=== PATIENT | male | born 1945 ===

== ENCOUNTER 2019-04-07 09:49 | Day surgery (SDC) | payer MEDICARE, OTHER, SELFPAY ==
--- NOTE | 2019-04-07 | PATH_ITS ---
[facility] Accession Number: [id number] . 01 Material submitted: . PART A: colon - ASCENDING COLON POLYP PART B: colon - TRANSVERSE COLON POLYP PART C: sigmoid colon - SIGMOID COLON POLYP . 01 Clinical history: . B: POLYP X2 . 02 Diagnosis: A. Ascending Colon, Polyp, Biopsy: Tubular adenoma. . B. Transverse Colon, Polyp, Biopsy: Tubular adenoma. . C. Sigmoid Colon, Polyp, Biopsy: Scant superficial, detached glandular epithelial cells negative for dysplasia. Vegetable material is also present. JRL/04/09/2019 . 02 Electronically signed: . Jennifer Lynch MD, Pathologist NPI- [id number] . 01 Gross description: . Part A: ASCENDING COLON POLYP: Received in formalin is 1 fragment(s) of singh, soft tissue measuring 0.6 x 0.3 x 0.2 cm submitted entirely in 1 cassette(s) Part B: TRANSVERSE COLON POLYP: Received in formalin are multiple fragment(s) of singh, soft tissue measuring 0.7 x 0.5 x 0.2 cm in aggregate submitted entirely in 1 cassette(s) Part C: SIGMOID COLON POLYP: Received in formalin are multiple fragment(s) of singh, soft tissue measuring 0.4 x 0.3 x 0.2 cm in aggregate submitted entirely in 1 cassette(s) /CKI /CKI . 02 Microscopic: . C. Additional levels were examined. . 02 Pathologist provided ICD-10: D12.2, D12.3 . 02 CPT . 895999, 618186, 584809 Performed at: 01 [facility] [address] [place] [address] [address], [place], [place] [id number] MD Hari Cárdenas MD Phone: [phone] Performed at: 02 [facility] [place] [address] [place] [id number] MD Jennifer Lynch MD Phone: [phone]
[2019-04-07 10:31] VITALS: BP 149/83; PULSE 64; RESP 16; TEMP 36; O2SAT 96; BMI 37.5
[2019-04-07 10:46] VITALS: BP 149/83; PULSE 64; RESP 16; TEMP 36; O2SAT 96; BMI 37.5
[2019-04-07] MEDS: SODIUM CHLORIDE 0.9% 1,000 ML 200 ML IV (10:48)
--- NOTE | 2019-04-07 11:40 | PM.HP.1 ---
History of Present Illness Chief complaint: [id number] SCREENING COLONOSCOPY Patient History Medical History Diabetes (Acute) GERD (gastroesophageal reflux disease) (Acute) History of ulcer disease (Acute) Hypertension (Acute) Hypothyroid (Acute) Seasonal allergies (Acute) Sleep apnea with use of continuous positive airway pressure (CPAP) (Acute) Surgical History H/O knee surgery (Acute) History of appendectomy (Acute) History of colonoscopy (Acute) History of tonsillectomy (Acute) History of total knee arthroplasty (Acute) Social History household members: spouse Family & Social History Social History: household members spouse Meds Home Medications Medication Instructions Recorded Confirmed Type Diuretic PO DAILY 04/07/19 History albuterol sulfate 2 puff INHALATION Q2H PRN 04/07/19 04/07/19 History aspirin 81 mg PO DAILY 04/07/19 04/07/19 History diclofenac sodium 2 g TOPICAL BID 04/07/19 04/07/19 History ferrous sulfate 324 mg PO DAILY 04/07/19 04/07/19 History fluticasone propionate 1 spray INTRANASAL BID 04/07/19 04/07/19 History gemfibrozil 600 mg PO BID 04/07/19 04/07/19 History glipizide 5 mg PO BID 04/07/19 04/07/19 History insulin glargine [Lantus U-100 24 unit SUBCUT DAILY 04/07/19 04/07/19 History Insulin] levothyroxine 125 mcg PO DAILY 04/07/19 04/07/19 History loratadine 10 mg PO DAILY 04/07/19 04/07/19 History losartan 100 mg PO DAILY 04/07/19 04/07/19 History metformin 1,000 mg PO BID 04/07/19 04/07/19 History metoprolol succinate 25 mg PO DAILY 04/07/19 04/07/19 History omeprazole 20 mg PO DAILY 04/07/19 04/07/19 History terazosin 10 mg PO BEDTIME 04/07/19 04/07/19 History triamcinolone acetonide 1 applic TOPICAL DAILY 04/07/19 04/07/19 History Allergies Allergy/AdvReac Type Severity Reaction Status Date / Time Xitpiiu-Dza-Kck Reductase AdvReac Intermediate Muscle Pain Verified 04/07/19 10:24 Inhibitor Review of Systems Review of Systems All systems reviewed & are unremarkable except as noted in HPI and below Exam Vital Signs (past 8 hours): - 04/07/19 10:31 04/07/19 10:46 Temperature 96.8 F L 96.8 F L Pulse Rate 64 64 Respiratory Rate 16 16 Blood Pressure 149/83 H 149/83 H Pulse Oximetry 96 96 Oxygen Delivery Method Room Air Narrative Exam Narrative: Awake alert oriented x3, pupils equal round reactive to light, lungs clear, heart regular rate rhythm, abdomen soft nontender nondistended, Assessment & Plan Assessment & Plan narrative: Colon cancer screening, colonoscopy
[2019-04-07] MEDS: fentaNYL 250 MCG/5 ML INJ IV (11:57)
[2019-04-07] MEDS: MIDAZOLAM 5 MG/5 ML VIAL IV (11:58)
--- NOTE | 2019-04-07 12:13 | PM.OP.ENDO ---
Operative Date/Time/Diagnoses Date of procedure: 04/07/19 Procedure & Clinicians Study performed: Colonoscopy with cold biopsy and snare polypectomy Moderate conscious sedation was administered by the endoscopy nurse and supervised by the endoscopist. The following parameters were monitored: Oxygen saturation, heart rate, blood pressure, and response to care. Sedation: 4 mg midazolam, 125 micro g fentanyl Indications: Colon cancer screening. Last colonoscopy was greater than 10 years ago. Procedure Notes Procedure in detail: Prior to the procedure, history and physical was performed, and patient medications and allergies were reviewed. Preprocedure nursing history and assessment was reviewed. Patient identification and proposed procedure were verified by the physician and nurse in the procedure room. The physical status of the patient was reassessed after the procedure. After informed consent was obtained including risks, benefits, and alternatives, the scope was passed under direct vision. Throughout the procedure, the patient's blood pressure, pulse, and oxygen saturations were monitored continuously. The colonoscope was introduced through the anus and advanced to the cecum as identified by the appendiceal orifice and ileocecal valve. The patient tolerated the procedure well. Bowel prep was deemed adequate to detect polyps greater than 5 mm. Perianal and digital rectal examinations notable for hemorrhoids. Grade 2 internal hemorrhoids noted during retroflexion. Multiple medium mouth sigmoid colon diverticula noted 3 mm ascending colon sessile polyp removed with a Jumbo biopsy forceps and retrieved Three sessile polyps ranging in size from 4 to 6 mm removed from the transverse and sigmoid colon with a cold snare and retrieved Impression: Four polyps ranging in size from 3-6 mm removed from the ascending, transverse, and sigmoid colon Sigmoid colon diverticulosis Internal hemorrhoids Complications: other (EBL minimal. No complications) Plan for aftercare: Follow-up pathology results Repeat colonoscopy at a date to be determined based on pathology results High-fiber diet Resume home medications Discharge home with escort
[2019-04-07 12:15] VITALS: BP 145/78; PULSE 56; RESP 15; TEMP 36.4; O2SAT 93
[2019-04-07 12:20] VITALS: BP 125/77; PULSE 57; RESP 15; TEMP 36.1; O2SAT 95
[2019-04-07 12:24] VITALS: BP 116/61; PULSE 57; RESP 16; TEMP 36.2; O2SAT 96
[2019-04-07 12:26] VITALS: BP 105/62; PULSE 57; RESP 18; TEMP 36.2; O2SAT 96
== END 2019-04-07 12:40 | disposition home or self-care (01) ==
PROVIDERS: Family Provider Internal Medicine; PCP Internal Medicine; Visit Provider Internal Medicine
PROC: 0DJD8ZZ Inspection of Lower Intestinal Tract, Via Natural or Artificial Opening Endoscopic (ICD-10-PCS; CPT 45378; principal; 2019-04-07 11:30)
DX: Z12.11 Encounter for screening for malignant neoplasm of colon (principal); K57.30 Diverticulosis of large intestine without perforation or abscess without bleeding; K64.1 Second degree hemorrhoids; E11.9 Type 2 diabetes mellitus without complications; I10 Essential (primary) hypertension; E03.9 Hypothyroidism, unspecified; G47.33 Obstructive sleep apnea (adult) (pediatric); D12.2 Benign neoplasm of ascending colon; D12.3 Benign neoplasm of transverse colon
CPT/HCPCS: 45385; 45380; 88305; J2250; J3010

== ENCOUNTER → 2022-05-25 10:12 | Outpatient (CLI) | payer MEDICARE, OTHER, SELFPAY ==
[2022-05-25 11:09] LABS: Influenza A - CEPHEID Flu A NEGATIVE (NEGATIVE); Influenza B - CEPHEID Flu B NEGATIVE (NEGATIVE)
== END ==
PROVIDERS: Family Provider Internal Medicine; PCP Internal Medicine; Visit Provider Physician Assistant
DX: J06.9 Acute upper respiratory infection, unspecified (principal)
CPT/HCPCS: 87502

== ENCOUNTER → 2022-05-25 10:29 | Outpatient (CLI) | payer MEDICARE, OTHER, SELFPAY ==
--- NOTE | 2022-05-25 10:34 | DI.RAD.S_ITS ---
PROCEDURE: XR CHEST 2V INDICATIONS: Covid +, COPD, SOB, wheezing TECHNIQUE: 2 views of the chest were acquired. COMPARISON: None. FINDINGS: Surgical changes and devices: None. Lungs and pleura: Lungs are clear. No pleural effusions or pneumothorax. Mediastinum: Mediastinal contours are normal. Heart size is normal. Bones and chest wall: No suspicious bony abnormalities. Soft tissues appear unremarkable. IMPRESSION: No acute cardiopulmonary process demonstrated radiographically. Dictated by: Rashaad Chapin M.D. on 05/25/2022 at 10:48 Approved by: Rashaad Chapin M.D. on 05/25/2022 at 10:49
== END ==
PROVIDERS: Family Provider Internal Medicine; PCP Internal Medicine; Referring Provider Physician Assistant; Visit Provider Physician Assistant
DX: J06.9 Acute upper respiratory infection, unspecified (principal); R06.02 Shortness of breath
CPT/HCPCS: 71046; 87502

== ENCOUNTER 2025-11-13 10:14 | Inpatient (IN) | payer MEDICARE, OTHER, SELFPAY ==
[2025-11-13] VITALS (49 sets, daily range): BP systolic 107–191; BP diastolic 54–97; PULSE 41–92; RESP 15–30; TEMP 36.6–37; O2SAT 90–100; BMI 37.5
--- NOTE | 2025-11-13 10:32 | EKG_ITS ---
[facility] [address] [place] [address] Test Date: 2025-11-13 Pat Name: Gael Woods Department: [facility] Room: Gender: Male Space Physicist: VIJI : 1945 Requested By: Order Number: [id number] Reading MD: Sundar Maier MD Measurements Intervals [place] Rate: 62 P: [place]: QRS: -54 QRSD: 128 T: 47 QT: 430 QTc: 436 Interpretive Statements Atrial fibrillation with a competing junctional pacemaker with premature ventricular or aberrantly conducted complexes Left axis deviation Right bundle branch block NO PRIOR TRACING Electronically Signed On 11-13-2025 12:04:32 PST by Sundar Maier MD
--- NOTE | 2025-11-13 10:32 | DI.RAD.S_ITS ---
PROCEDURE: XR CHEST 1V INDICATIONS: sough fever TECHNIQUE: One view of the chest was acquired. COMPARISON: [facility], CR, XR CHEST 2V, 05/25/2022, 10:23. FINDINGS: Heart is enlarged. Pulmonary vasculature unremarkable. No pneumothorax or pleural effusion. Probable large hiatal hernia. IMPRESSION: No acute abnormality. Suspect large hiatal hernia. Dictated by: Stanley Tan M.D. on 11/13/2025 at 11:30 Approved by: Stanley Tan M.D. on 11/13/2025 at 11:31
--- NOTE | 2025-11-13 10:37 | ED.WEAKNESS ---
HPI - Weakness General Chief complaint: Weakness Stated complaint: Pneumonia/Weak,tired Time Seen by Provider: 11/13/25 10:24 Source: patient and family Mode of arrival: Family Vehicle History of Present Illness HPI Narrative: Patient is a 79-year-old male history of insulin-dependent diabetes, hypertension hyperlipidemia recently was admitted to [facility] for an episode of atrial fibrillation but per patient thought it was from medication he is not on anticoagulation, presenting today with increasing weakness cough and shortness of breath. Reports he was diagnosed by an urgent care for pneumonia. He was placed on Augmentin and doxycycline today is the last day of antibiotics but he has had no significant improvement. He has been weak and tired. He had episodes of mucousy coughing spells where he is unable to stop. Appetite has been decreased. Related Data Home Medications ?Medication ?Instructions ?Recorded ?Confirmed Diuretic PO DAILY 04/07/19 05/25/22 albuterol sulfate 90 mcg/actuation 2 puff inhalation Q2H PRN copd 04/07/19 05/25/22 aerosol inhaler aspirin 81 mg tablet,delayed 81 mg PO DAILY 04/07/19 05/25/22 release diclofenac sodium 1 % topical gel 2 g topical BID 04/07/19 05/25/22 ferrous sulfate 324 mg (65 mg 324 mg PO DAILY 04/07/19 05/25/22 iron) tablet,delayed release fluticasone propionate 50 1 spray intranasal BID 04/07/19 05/25/22 mcg/actuation nasal spray,suspension gemfibrozil 600 mg tablet 600 mg PO BID 04/07/19 05/25/22 glipizide 5 mg tablet 5 mg PO BID 04/07/19 05/25/22 insulin glargine 100 unit/mL 24 unit SUBCUT DAILY 04/07/19 05/25/22 subcutaneous solution (Lantus U-100 Insulin) levothyroxine 125 mcg tablet 125 mcg PO DAILY 04/07/19 05/25/22 loratadine 10 mg tablet 10 mg PO DAILY 04/07/19 05/25/22 losartan 100 mg tablet 100 mg PO DAILY 04/07/19 05/25/22 metformin 1,000 mg tablet 1,000 mg PO BID 04/07/19 05/25/22 metoprolol succinate 25 mg 25 mg PO DAILY 05/08/19 06/25/22 tablet,extended release 24 hr omeprazole 20 mg capsule,delayed 20 mg PO DAILY 04/07/19 05/25/22 release terazosin 10 mg capsule 10 mg PO BEDTIME 04/07/19 05/25/22 triamcinolone acetonide 0.1 % 1 applic topical DAILY 04/07/19 05/25/22 topical ointment Previous Rx's ?Medication ?Instructions ?Recorded codeine 10 mg-guaifenesin 100 mg/5 5 ml PO Q6H PRN cough #100 mL 11/13/25 mL oral liquid (Guaifenesin AC) prednisone 10 mg tablet 10 mg PO DAILY #30 tabs 11/13/25 Allergies Allergy/AdvReac Type Severity Reaction Status Date / Time [id number] Reductase AdvReac Intermediate Muscle Pain Verified 11/13/25 10:28 Inhibitor (Mkwyrex-Cwv-Jtl Reductase Inhibitor) Patient History Medical History (Updated 11/13/25 @ 19:03 by Aretha Gongora DO) History of ulcer disease Seasonal allergies Hypertension GERD (gastroesophageal reflux disease) Hypothyroid Sleep apnea with use of continuous positive airway pressure (CPAP) Diabetes Surgical History H/O knee surgery History of total knee arthroplasty History of tonsillectomy History of appendectomy History of colonoscopy Social History household members: spouse Smoking Status: Former smoker Smoking Status: Former smoker tobacco type: cigarettes Exam Initial Vital Signs Initial Vital Signs: Vital Signs Temperature 98.6 F 11/13/25 10:28 Pulse Rate 52 L 11/13/25 10:28 Respiratory Rate 22 11/13/25 10:28 Blood Pressure 163/70 H 11/13/25 10:28 Pulse Oximetry 95 11/13/25 10:28 Oxygen Delivery Method Room Air 11/13/25 10:28 GENERAL: Alert week 79-year-old and in no acute distress. HEENT: Head atraumatic,EOMI, pupils reactive, face symmetric, moist mucous membranes CARDIOVASCULAR: Regular rate and rhythm without murmurs, rubs or gallops. RESPIRATORY: Decreased breath sounds slight wheezing definite coughing with deep breath ABDOMEN: Soft, nontender. Normoactive bowel sounds all 4 quadrants. No guarding or rebound. EXTREMITIES: Normal range of motion, no clubbing or edema. Neurovascularly intact NEUROLOGICAL: Alert and oriented x4.Normal gait and speech. Cranial nerves II through XII grossly intact. SKIN: Warm, dry, no laceration, no petechiae, no rashes or lesions. Course Orders Ordered: ED Orders 11/13/25 10:32 XR chest 1V Stat EKG-12 Lead Stat 11/13/25 10:38 Covid-19 + FLU A/B + RSV - PCR Stat 11/13/25 10:45 Complete Blood Count AUTO DIFF Stat Comprehensive Metabolic Panel Stat Lactate (Lactic Acid) Stat NT-proBNP (BNP-Adult 18+) Stat Procalcitonin Stat Troponin & CK Cardiac Panel Stat 11/13/25 11:00 Blood Culture Stat 11/13/25 13:40 Urinalysis and Microscopic Stat 11/13/25 15:25 Lactate (Lactic Acid) Stat Discontinued Medications Albuterol/Ipratropium (Albuterol/Ipratropium 3 Ml Ampul) 3 ml INH NOW ONE Stop: 11/13/25 10:34 Last Admin: 11/13/25 10:52 Dose: 3 ml Documented By: BRYON Albuterol/Ipratropium (Albuterol/Ipratropium 3 Ml Ampul) 3 ml INH NOW ONE Stop: 11/13/25 16:28 Last Admin: 11/13/25 16:29 Dose: 3 ml Documented By: REMBERTO Sodium Chloride (Normal Saline 0.9%) 1,000 mls @ 1,000 mls/hr IV BOLUS ONE Stop: 11/13/25 12:40 Last Infusion: 11/13/25 13:24 Dose: Infused Documented By: Admin: 11/13/25 12:16 Dose: 1,000 mls/hr Documented By: JOSEPH Piperacillin Sod/Tazobactam (Sod 4.5 gm/ Sodium Chloride) 100 mls @ 200 mls/hr IV NOW ONE Stop: 11/13/25 11:42 Last Infusion: 11/13/25 13:24 Dose: Infused Documented By: Admin: 11/13/25 12:16 Dose: 200 mls/hr Documented By: JOSEPH Sodium Chloride (Normal Saline 0.9%) 1,000 mls @ 1,000 mls/hr IV BOLUS ONE Stop: 11/13/25 16:54 Last Infusion: 11/13/25 17:45 Dose: Infused Documented By: Admin: 11/13/25 16:38 Dose: 1,000 mls/hr Documented By: JOSEPH Methylprednisolone (Methylprednisolone Succ 125 Mg/2 Ml Vial) 125 mg IV NOW ONE Stop: 11/13/25 10:34 Last Admin: 11/13/25 11:18 Dose: 125 mg Documented By: JENNA Vital Signs Vital signs: Vital Signs - 8 hr 11/13/25 11:23 11/13/25 11:23 11/13/25 11:30 Pulse Rate 50 L Respiratory Rate 23 Blood Pressure 143/76 H 133/63 Pulse Oximetry 95 Oxygen Delivery Method 11/13/25 11:30 11/13/25 11:45 11/13/25 11:45 Pulse Rate 48 L 50 L Respiratory Rate 16 21 Blood Pressure 143/70 H Pulse Oximetry 94 97 Oxygen Delivery Method 11/13/25 12:00 11/13/25 12:00 11/13/25 12:15 Pulse Rate 47 L Respiratory Rate 15 Blood Pressure 123/57 L 128/61 Pulse Oximetry 94 Oxygen Delivery Method 11/13/25 12:15 11/13/25 12:30 11/13/25 12:30 Pulse Rate 55 L 49 L Respiratory Rate Blood Pressure 136/64 Pulse Oximetry 97 95 Oxygen Delivery Method 11/13/25 12:45 11/13/25 12:45 11/13/25 13:00 Pulse Rate 43 L 49 L Respiratory Rate 23 24 Blood Pressure 154/63 H Pulse Oximetry 94 94 Oxygen Delivery Method 11/13/25 13:00 11/13/25 13:15 11/13/25 13:15 Pulse Rate 44 L Respiratory Rate 26 H Blood Pressure 142/66 H 156/70 H Pulse Oximetry 94 Oxygen Delivery Method 11/13/25 13:28 11/13/25 13:31 11/13/25 13:45 Pulse Rate 44 L 52 L 61 Respiratory Rate 16 18 Blood Pressure 156/70 H 151/64 H 107/54 L Pulse Oximetry 91 95 98 Oxygen Delivery Method Room Air 11/13/25 14:01 11/13/25 14:15 11/13/25 14:30 Pulse Rate 41 L 52 L 54 L Respiratory Rate 24 19 16 Blood Pressure 142/63 H 142/60 H 140/62 Pulse Oximetry 92 98 96 Oxygen Delivery Method 11/13/25 14:45 11/13/25 16:15 11/13/25 16:16 Pulse Rate 62 45 L 49 L Respiratory Rate 23 Blood Pressure 149/65 H Pulse Oximetry 97 96 95 Oxygen Delivery Method Room Air 11/13/25 16:18 11/13/25 16:25 11/13/25 16:25 Pulse Rate 45 L Respiratory Rate 25 H Blood Pressure 170/77 H 172/78 H Pulse Oximetry 95 Oxygen Delivery Method 11/13/25 16:29 11/13/25 16:30 11/13/25 16:31 Pulse Rate 53 L 44 L 44 L Respiratory Rate 16 26 H 26 H Blood Pressure Pulse Oximetry 99 94 93 Oxygen Delivery Method Room Air Room Air 11/13/25 16:31 11/13/25 16:45 11/13/25 16:45 Pulse Rate 54 L Respiratory Rate 28 H Blood Pressure 168/91 H 168/68 H Pulse Oximetry 92 Oxygen Delivery Method 11/13/25 17:00 11/13/25 17:00 11/13/25 17:15 Pulse Rate 62 Respiratory Rate 26 H Blood Pressure 181/78 H 172/75 H Pulse Oximetry 92 Oxygen Delivery Method Room Air 11/13/25 17:15 11/13/25 17:30 11/13/25 17:31 Pulse Rate 83 92 H Respiratory Rate 27 H 30 H Blood Pressure 167/97 H Pulse Oximetry 90 L 95 Oxygen Delivery Method 11/13/25 17:31 11/13/25 17:45 11/13/25 17:45 Pulse Rate 88 90 Respiratory Rate 29 H Blood Pressure 167/84 H Pulse Oximetry 95 93 Oxygen Delivery Method Room Air 11/13/25 18:00 11/13/25 18:01 11/13/25 18:01 Pulse Rate 89 85 Respiratory Rate 26 H 27 H Blood Pressure 163/71 H Pulse Oximetry 93 94 Oxygen Delivery Method 11/13/25 18:15 11/13/25 18:15 11/13/25 18:30 Pulse Rate 82 Respiratory Rate 25 H Blood Pressure 159/70 H 149/77 H Pulse Oximetry 93 Oxygen Delivery Method 11/13/25 18:30 Pulse Rate 81 Respiratory Rate 25 H Blood Pressure Pulse Oximetry 94 Oxygen Delivery Method Room Air MDM - Weakness Lab Data 11/13/25 10:45 11/13/25 10:45 Labs: Lab Results 11/13/25 11/13/25 11/13/25 Range/Units 10:38 10:45 12:40 WBC 9.8 (4.5-11.0) X10^3/uL RBC 4.08 L (4.5-5.9) X10^6/uL Hgb 12.0 L (13.5-17.5) g/dL Hct 36.0 L (41-53) % MCV 88.3 (80-100) fL MCH 29.4 (26-34) PG MCHC 33.3 (30-36) % RDW 13.4 (11.6-14.8) % Plt Count 444 H (150-400) X10^3/uL Neut % (Auto) 74.0 (50-75) % Lymph % (Auto) 13.5 L (25-40) % [place] % (Auto) 9.4 (3-14) % Eos % (Auto) 2.0 (2-4) % Baso % (Auto) 1.1 (0-2) % Neut # (Auto) 7200 H (7652-3690) /uL Lymph # (Auto) 1300 (8467-2937) /uL [place] # (Auto) 900 (0-900) /uL Eos # (Auto) 200 (0-450) /uL Baso # (Auto) 100 (0-100) /uL Sodium 132 L (137-145) mmol/L Potassium 4.3 (3.4-5.1) mmol/L Chloride 102 (98-107) mmol/L Carbon Dioxide 19 L (22-32) mmol/L BUN 17 (9-20) mg/dL Creatinine 1.01 (0.66-1.25) mg/dL Estimated GFR > 60 (>60) mL/min BUN/Creatinine Ratio 16.8 (6-22) Glucose 137 H (70-99) mg/dL Lactate 3.2 H 3.0 H (0.7-2.1) mmol/L Calcium 9.0 (8.4-10.2) mg/dL Total Bilirubin 0.4 (0.2-1.3) mg/dL AST 31 (17-59) IU/L ALT 11 (<50) IU/L Alkaline Phosphatase 86 (38-126) U/L Total Creatine Kinase 279 H (55-170) U/L Troponin I 0.019 (0.01-0.034) ng/mL NT-Pro-B Natriuret Pep 586 H (<450) pg/mL Total Protein 7.0 (6.3-8.2) g/dL Albumin 4.3 (3.5-5.0) g/dL Globulin 2.7 (1.7-4.1) g/dL Albumin/Globulin Ratio 1.6 (1.0-2.8) Procalcitonin 0.048 (<0.5) ng/mL Urine Color Urine Appearance Urine pH (4.5-8.0) Ur Specific [place] (1.000-1.035) Urine Protein (Negative) Urine Glucose (UA) (Negative) g/dL Urine Ketones (NEGATIVE) Urine Occult Blood (Negative) Urine Nitrate (Negative) Urine Bilirubin (NEGATIVE) Urine Urobilinogen (0.2) E.U./dL Ur Leukocyte Esterase (NEGATIVE) Urine RBC (0-5/HPF) Urine WBC (0-5/HPF) Ur Squamous Epith Cells (0-5/HPF) Urine Bacteria (None) Ur Culture Indicated? Vol Urine Centrifuged SARS-CoV-2 (PCR) Negative (Negative) Influenza A (RT-PCR) Flu a negative (NEGATIVE) Influenza B (RT-PCR) Flu b negative (NEGATIVE) RSV (PCR) Negative (Negative) 11/13/25 11/13/25 11/13/25 Range/Units 13:40 15:25 17:34 WBC (4.5-11.0) X10^3/uL RBC (4.5-5.9) X10^6/uL Hgb (13.5-17.5) g/dL Hct (41-53) % MCV (80-100) fL MCH (26-34) PG MCHC (30-36) % RDW (11.6-14.8) % Plt Count (150-400) X10^3/uL Neut % (Auto) (50-75) % Lymph % (Auto) (25-40) % [place] % (Auto) (3-14) % Eos % (Auto) (2-4) % Baso % (Auto) (0-2) % Neut # (Auto) (4669-7245) /uL Lymph # (Auto) (6596-7042) /uL [place] # (Auto) (0-900) /uL Eos # (Auto) (0-450) /uL Baso # (Auto) (0-100) /uL Sodium (137-145) mmol/L Potassium (3.4-5.1) mmol/L Chloride (98-107) mmol/L Carbon Dioxide (22-32) mmol/L BUN (9-20) mg/dL Creatinine (0.66-1.25) mg/dL Estimated GFR (>60) mL/min BUN/Creatinine Ratio (6-22) Glucose (70-99) mg/dL Lactate 3.4 H 3.8 H (0.7-2.1) mmol/L Calcium (8.4-10.2) mg/dL Total Bilirubin (0.2-1.3) mg/dL AST (17-59) IU/L ALT (<50) IU/L Alkaline Phosphatase (38-126) U/L Total Creatine Kinase (55-170) U/L Troponin I (0.01-0.034) ng/mL NT-Pro-B Natriuret Pep (<450) pg/mL Total Protein (6.3-8.2) g/dL Albumin (3.5-5.0) g/dL Globulin (1.7-4.1) g/dL Albumin/Globulin Ratio (1.0-2.8) Procalcitonin (<0.5) ng/mL Urine Color Yellow Urine Appearance Clear Urine pH 6.0 (4.5-8.0) Ur Specific [place] 1.020 (1.000-1.035) Urine Protein Negative (Negative) Urine Glucose (UA) Negative (Negative) g/dL Urine Ketones Trace H (NEGATIVE) Urine Occult Blood Negative (Negative) Urine Nitrate Negative (Negative) Urine Bilirubin Negative (NEGATIVE) Urine Urobilinogen 0.2 (0.2) E.U./dL Ur Leukocyte Esterase Negative (NEGATIVE) Urine RBC None seen (0-5/HPF) Urine WBC None seen (0-5/HPF) Ur Squamous Epith Cells 0-1 /hpf (0-5/HPF) Urine Bacteria None seen (None) Ur Culture Indicated? Cult not indicated Vol Urine Centrifuged 10ml (spun) SARS-CoV-2 (PCR) (Negative) Influenza A (RT-PCR) (NEGATIVE) Influenza B (RT-PCR) (NEGATIVE) RSV (PCR) (Negative) Imaging Data Chest x-ray: Radiologist Impression: PROCEDURE: XR CHEST 1V INDICATIONS: sough fever TECHNIQUE: One view of the chest was acquired. COMPARISON: [facility], CR, XR CHEST 2V, 05/25/2022, 10:23. FINDINGS: Heart is enlarged. Pulmonary vasculature unremarkable. No pneumothorax or pleural effusion. Probable large hiatal hernia. IMPRESSION: No acute abnormality. Suspect large hiatal hernia. Dictated by: Stanley Tan M.D. on 11/13/2025 at 11:30 Approved by: Stanley Tan M.D. on 11/13/2025 at 11:31 ECG Data Attestation: I personally reviewed and interpreted this ECG as follows: Prior ECG tracings: not available for review Interpretation: Bradycardic AFib rate 62 no acute ischemia MDM Narrative Medical decision making narrative: MDM CC: Cough weakness Complicating co-morbidities: COPD insulin-dependent diabetes, hypertension hypothyroid, GERD, AFib, Parkinson's Data collected from: patient Medical records reviewed: Admission from [facility] 08/28/2025 through 09/01/2025. Patient was admitted for symptomatic bradycardia had a heart rate in the 30s received atropine. All metoprolol has been stopped. In the hospital he converted to a sinus rhythm Differential considered: Sepsis, COPD, pneumonia viral illness, symptomatic bradycardia Exam documented above, pertinent findings include: Alert 79-year-old male appears weak breath sounds are clear he does have reactive bronchogenic like cough. Lab Test results independently reviewed as above. Pertinent findings: CBC WBCs 9.8 no anemia no significant left shift CMP bicarb is 19 creatinine 1.0 Lactate elevated 3.2-->3.0-->3.4-->3.8 procalcitonin 0.04 Troponin negative, BNP 586 Independently reviewed EKG as above AFib with bradycardia no ischemia no priors to compare Imaging studies independently reviewed: Chest x-ray no pneumonia large hiatal hernia Consultations: Dr. Garcia kindly accepts patient Treatments: Duo neb, Solu-Medrol Zosyn Re-evaluations: Patient ambulated in the ED did not require oxygen overall appears better. Discussion: Patient is 79-year-old male history of COPD insulin insulin-dependent diabetes AFib paroxysmal presenting today with generalized weakness. He was just treated for pneumonia with doxycycline and Augmentin that was diagnosed clinically. Today he is noted to have an elevated lactate but no evidence of infection. He has no leukocytosis he is afebrile viral panel is negative urinalysis is negative. This maybe from some difficulty breathing and coughing. He is able to ambulate without difficulty. However after ambulation he became a little more tachypneic not hypoxic. Given an albuterol treatment. Lactic acid actually went up to 3.4. Unclear meaning of this. It continues to rise or repeat is 0.8. Discharge Plan Departure Patient Disposition: Admitted as Observation Clinical Impression: COPD (chronic obstructive pulmonary disease), Acidosis, lactic Admit Date/Time: 11/13/25 18:57 Admit Provider: Geraldine Garcia Sepsis Evaluation (ED) Level 2 - SIRS Sepsis SIRS Criteria Present: Respiratory Rate > 20 bpm or PaCO2 < 32 mmHg Level 3 - Organ Dysfunction Sepsis Organ Dysfunction Criteria Present: Lactic Acid > 2 mmol/L Response Fluid calculation based on 30 mL/kg within 1hr of criteria: N/A (Patient not hypotensive initially concerned for possible congestive heart failure) If IVF bolus N/A, rationale: Possible congestive heart Tissue Perfusion Reassessed within 6 hrs of infusion start time: Yes (Lactate rising, still elevated greater than 2) Date of Tissue Perfusion Reassessment completed: 11/13/25 Time Tissue Perfusion Reassessment completed: 12:40
[2025-11-13] MEDS: ALBUTEROL/IPRATROPIUM 3 ML AMPUL INH ×3 (10:52→20:53)
[2025-11-13 11:01] LABS: Add Manual Diff / Slide Review NO; Hematocrit 36.0 % (41-53); Hemoglobin 12.0 g/dL (13.5-17.5); Lymphocytes Absolute Auto 1300 /uL (1100-4500); Mean Corpuscular HGB Conc 33.3 % (30-36); Mean Corpuscular Hemoglobin 29.4 PG (26-34); Mean Corpuscular Volume 88.3 fL (80-100); Platelet Count 444 X10^3/uL (150-400)
[2025-11-13 11:15] LABS: HEMOLYSIS < 15 (0-50)
[2025-11-13 11:18] LABS: Creatine Kinase 279 U/L (55-170)
[2025-11-13] MEDS: methylPREDNISolone succ 125 MG/2 ML VIAL IV (11:18)
[2025-11-13 11:19] LABS: Alanine Aminotransferase 11 IU/L (<50); Albumin 4.3 g/dL (3.5-5.0); Albumin Globulin Ratio 1.6 (1.0-2.8); Alkaline Phosphatase 86 U/L (38-126); Blood Urea Nitrogen 17 mg/dL (9-20); Calcium 9.0 mg/dL (8.4-10.2); Carbon Dioxide 19 mmol/L (22-32); Chloride 102 mmol/L (98-107); Estimated Glomerular Filt Rate > 60 mL/min (>60); Globulin 2.7 g/dL (1.7-4.1); Glucose 137 mg/dL (70-99); Potassium 4.3 mmol/L (3.4-5.1); Sodium 132 mmol/L (137-145); Total Protein 7.0 g/dL (6.3-8.2)
[2025-11-13 11:20] LABS: Lactate (Lactic Acid) 3.2 mmol/L (0.7-2.1)
[2025-11-13 11:31] LABS: Troponin I 0.019 ng/mL (0.01-0.034)
[2025-11-13 11:36] LABS: Procalcitonin 0.048 ng/mL (<0.5)
[2025-11-13 12:09] LABS: NT-proBNP (BNP-Adult 18+) 586 pg/mL (<450)
[2025-11-13 12:11] LABS: Influenza A - CEPHEID Flu A NEGATIVE (NEGATIVE); Influenza B - CEPHEID Flu B NEGATIVE (NEGATIVE)
[2025-11-13 12:16] LABS: COVID-19 CEPHEID 4-PLEX PCR Negative (Negative)
[2025-11-13] MEDS: SODIUM CHLORIDE 0.9% 1,000 ML 1000 ML IV ×2 (12:16→16:38)
[2025-11-13] MEDS: PIPERACILLIN/TAZO 4.5 GM in SODIUM CHLORIDE 0.9% 100 ML IV (12:16)
[2025-11-13 12:31] LABS: Reflexed Lactate in 2 Hours Y
[2025-11-13 13:06] LABS: Lactate 2HR (Lactic Acid Rflx) 3.0 mmol/L (0.7-2.1)
[2025-11-13 14:01] LABS: Appearance Urine UA CLEAR; Bilirubin Urine UA NEGATIVE (NEGATIVE); Color Urine UA YELLOW; Glucose Urine UA NEGATIVE (Negative); Ketones Urine UA TRACE (NEGATIVE); Leukocyte Esterase Urine UA NEGATIVE (NEGATIVE); Nitrite Urine UA NEGATIVE (Negative); Occult Blood Urine UA NEGATIVE (Negative); Protein Urine UA NEGATIVE (Negative); Specific Gravity Urine UA 1.020 (1.000-1.035); Urobilinogen Urine UA 0.2 E.U./dL (0.2); pH Urine UA 6.0 (4.5-8.0)
[2025-11-13 14:11] LABS: Culture Indicated Urine Cult Not Indicated
[2025-11-13 15:38] LABS: Lactate (Lactic Acid) 3.4 mmol/L (0.7-2.1)
--- NOTE | 2025-11-13 16:30 | PC.NURSE ---
Patient was up for discharge. Patient vitals told to provider Fransisca. Provider Fransisca gives verbal order for RT to do a duoneb treatment.
[2025-11-13 17:02] LABS: Reflexed Lactate in 2 Hours Y
[2025-11-13 17:54] LABS: Lactate 2HR (Lactic Acid Rflx) 3.8 mmol/L (0.7-2.1)
--- NOTE | 2025-11-13 19:10 | PC.NURSE ---
Witnessed patient using personal inhaler while in room. Patient has been receiving duo-nebs in ED. Notified Gonsalo WRIGHT of inhaler usage.
[2025-11-13] MEDS: methylPREDNISolone succ 125 MG/2 ML VIAL 60 MG IV (19:44)
[2025-11-13] MEDS: AZITHROMYCIN 500 MG in DEXTROSE 5% IN WATER 250 ML 250 MG IV (19:49)
[2025-11-13] MEDS: SODIUM CHLORIDE 0.9% 1,000 ML 100 ML IV (20:38)
[2025-11-13 20:44] LABS: Lactate (Lactic Acid) 3.3 mmol/L (0.7-2.1)
--- NOTE | 2025-11-13 20:45 | PC.NURSE ---
1944: This RN calls RT and notifies her of treatment needed. RT states she will be downstairs in a bit.
[2025-11-13 22:07] LABS: Reflexed Lactate in 2 Hours Y
[2025-11-13 22:44] LABS: Lactate 2HR (Lactic Acid Rflx) 5.0 mmol/L (0.7-2.1)
[2025-11-14] VITALS (11 sets, daily range): BP systolic 142–197; BP diastolic 71–93; PULSE 64–77; RESP 16–22; TEMP 36.3–37.2; O2SAT 92–100
--- NOTE | 2025-11-14 00:03 | EKG_ITS ---
[address] [id number] [address] [address] Test Date: 2025-11-13 Pat Name: Gael Woods Department: Room: 206 Gender: Male [employer]: : 1945 Requested By: Order Number: [id number] Reading MD: Sundar Maier MD Measurements Intervals [place] Rate: 79 P: 57 CT: 258 QRS: -57 QRSD: 144 T: 75 QT: 414 QTc: 474 Interpretive Statements Atrial Flutter with 4:1 block Right bundle branch block Left anterior fascicular block Bifascicular block Electronically Signed On 11-15-2025 6:44:55 PST by Sundar Maier MD
[2025-11-14] MEDS: MORPHINE 2 MG/ML INJ IV (00:20)
[2025-11-14 00:31] LABS: Add Manual Diff / Slide Review NO; Hematocrit 34.6 % (41-53); Hemoglobin 11.5 g/dL (13.5-17.5); Lymphocytes Absolute Auto 500 /uL (1100-4500); Mean Corpuscular HGB Conc 33.3 % (30-36); Mean Corpuscular Hemoglobin 29.1 PG (26-34); Mean Corpuscular Volume 87.5 fL (80-100); Platelet Count 453 X10^3/uL (150-400)
[2025-11-14 01:05] LABS: Alanine Aminotransferase 34 IU/L (<50); Albumin 4.2 g/dL (3.5-5.0); Albumin Globulin Ratio 1.6 (1.0-2.8); Alkaline Phosphatase 81 U/L (38-126); Blood Urea Nitrogen 15 mg/dL (9-20); Calcium 9.0 mg/dL (8.4-10.2); Carbon Dioxide 18 mmol/L (22-32); Chloride 100 mmol/L (98-107); Estimated Glomerular Filt Rate > 60 mL/min (>60); Globulin 2.6 g/dL (1.7-4.1); Glucose 177 mg/dL (70-99); HEMOLYSIS < 15 (0-50); Magnesium 1.4 mg/dL (1.6-2.3); Potassium 4.3 mmol/L (3.4-5.1); Sodium 133 mmol/L (137-145); Total Protein 6.8 g/dL (6.3-8.2)
[2025-11-14 01:09] LABS: Lactate (Lactic Acid) 4.5 mmol/L (0.7-2.1)
[2025-11-14 01:16] LABS: NT-proBNP (BNP-Adult 18+) 911 pg/mL (<450); Troponin I 0.017 ng/mL (0.01-0.034)
[2025-11-14 02:01] LABS: Reflexed Lactate in 2 Hours Y
[2025-11-14] MEDS: CARBIDOPA-LEVODOPA 25/100 TABLET 1.5 EACH PO ×4 (02:20→21:41)
[2025-11-14] MEDS: BENZONATATE 100 MG CAPSULE PO ×2 (02:20→16:53)
[2025-11-14] MEDS: PIPERACILLIN/TAZO 3.375 GM in SODIUM CHLORIDE 0.9% 100 ML IV ×3 (02:21→18:13)
[2025-11-14] MEDS: BENZOCAINE/MENTHOL 1 LOZ PKT 1 EACH PO ×3 (02:21→16:53)
[2025-11-14] MEDS: methylPREDNISolone succ 125 MG/2 ML VIAL 60 MG IV ×3 (02:21→18:58)
[2025-11-14] MEDS: MAGNESIUM SULFATE 2 GM/50 ML PIGGYBACK IV (02:22)
[2025-11-14 02:26] LABS: Lactate 2HR (Lactic Acid Rflx) 3.2 mmol/L (0.7-2.1)
[2025-11-14 04:54] LABS: Add Manual Diff / Slide Review NO; Hematocrit 32.9 % (41-53); Hemoglobin 11.0 g/dL (13.5-17.5); Lymphocytes Absolute Auto 500 /uL (1100-4500); Mean Corpuscular HGB Conc 33.6 % (30-36); Mean Corpuscular Hemoglobin 29.3 PG (26-34); Mean Corpuscular Volume 87.2 fL (80-100); Platelet Count 477 X10^3/uL (150-400)
[2025-11-14 05:07] LABS: Lactate (Lactic Acid) 2.4 mmol/L (0.7-2.1)
[2025-11-14 05:08] LABS: Blood Urea Nitrogen 15 mg/dL (9-20); Calcium 8.9 mg/dL (8.4-10.2); Carbon Dioxide 22 mmol/L (22-32); Chloride 100 mmol/L (98-107); Estimated Glomerular Filt Rate > 60 mL/min (>60); Glucose 189 mg/dL (70-99); HEMOLYSIS < 15 (0-50); Potassium 4.4 mmol/L (3.4-5.1); Sodium 130 mmol/L (137-145)
[2025-11-14] MEDS: LEVOTHYROXINE 125 MCG TABLET PO (06:14)
[2025-11-14 06:35] LABS: Reflexed Lactate in 2 Hours Y
[2025-11-14 07:16] LABS: Lactate 2HR (Lactic Acid Rflx) 1.6 mmol/L (0.7-2.1)
--- NOTE | 2025-11-14 07:32 | PM.HP.1 ---
History of Present Illness History of Present Illness Date Patient Seen: 11/13/25 Time Patient Seen: 22:13 Chief complaint: Pneumonia/Weak,tired Narrative: 79 year old male with past medical history of HTN, HLD, IDDM, afib and COPD non O2 dependent presents with cough and shortness of breath. Per the patients' report, the patient was diagnosed with PNA at [facility] and was started on Augmentin/Doxycycline in which the patient completed today. Howeer, the patient states he continue to have shortness of breath and coughig. The patient states he has generalized weakness, fatigue and decreased appetite. Otherwise the patient denies any fever, chills, nausea, vomiting or diarrhea. In our ER the patient was hemodynamically stable. However, the patient was still reported to be staruting well on room air. The patient CXR shows no pneumonia but lacti acid was 3.2. IVF was given and Zosyn, solumedrol and duonebs. [facility] Medical History (Updated 11/13/25 @ 19:03 by Aretha Gongora DO) History of ulcer disease Seasonal allergies Hypertension GERD (gastroesophageal reflux disease) Hypothyroid Sleep apnea with use of continuous positive airway pressure (CPAP) Diabetes Surgical History H/O knee surgery History of total knee arthroplasty History of tonsillectomy History of appendectomy History of colonoscopy Social History household members: spouse Smoking Status: Former smoker alcohol intake: never Meds Home Medications and Allergies Home Medications ?Medication ?Instructions ?Recorded ?Confirmed ?Type albuterol sulfate 90 mcg/actuation 2 puff inhalation Q2H PRN copd 04/07/19 11/13/25 History aerosol inhaler aspirin 81 mg tablet,delayed 81 mg PO DAILY 04/07/19 11/13/25 History release diclofenac sodium 1 % topical gel 2 g topical BID 04/07/19 11/13/25 History fluticasone propionate 50 1 spray intranasal BID PRN 04/07/19 11/13/25 History mcg/actuation nasal congestion spray,suspension insulin glargine 100 unit/mL 24 unit SUBCUT BEDTIME 04/07/19 11/13/25 History subcutaneous solution (Lantus U-100 Insulin) levothyroxine 125 mcg tablet 125 mcg PO DAILY 04/07/19 11/13/25 History losartan 100 mg tablet 100 mg PO BEDTIME 04/07/19 11/13/25 History metformin 1,000 mg tablet 2,000 mg PO DAILY 04/07/19 11/13/25 History omeprazole 20 mg capsule,delayed 20 mg PO DAILY 04/07/19 11/13/25 History release triamcinolone acetonide 0.1 % 1 applic topical DAILY PRN dry skin 04/07/19 11/13/25 History topical ointment carbidopa 25 mg-levodopa 100 mg 1.5 tab PO TID 11/13/25 11/13/25 History tablet codeine 10 mg-guaifenesin 100 mg/5 5 ml PO Q6H PRN cough #100 mL 11/13/25 Rx mL oral liquid (Guaifenesin AC) ezetimibe 10 mg tablet 10 mg PO DAILY 11/13/25 11/13/25 History fexofenadine 1 tab PO DAILY 11/13/25 11/13/25 History furosemide 20 mg tablet (Lasix) 20 mg PO DAILY 11/13/25 11/13/25 History prednisone 10 mg tablet 10 mg PO DAILY #30 tabs 11/13/25 11/13/25 Rx tamsulosin 0.4 mg capsule (Flomax) 0.8 mg PO BEDTIME 11/13/25 11/13/25 History Allergies Allergy/AdvReac Type Severity Reaction Status Date / Time Shwwqli-VTR-AcI Reductase AdvReac Intermediate Muscle Pain Verified 11/13/25 10:28 Inhibitor (Ukcthwc-Fnm-Qre Reductase Inhibitor) Review of Systems Review of Systems ROS: Yes All systems reviewed with the patient and are negative except as otherwise documented Exam Vital Signs (past 8 hours): - 11/13/25 23:35 11/14/25 01:00 11/14/25 04:30 Temperature 97.9 F 98.1 F 98.8 F Pulse Rate 80 77 71 Respiratory Rate 20 20 Blood Pressure 154/68 H 179/89 H 181/88 H Pulse Oximetry 92 98 94 Oxygen Flow Rate 0 2.5 2.5 Fraction of Inspired Oxygen 21 SaO2/FiO2 Ratio 461 Oxygen Delivery Method Room Air Oxygen Flow Rate 2.5 Narrative Exam Narrative: Physical Exam: GENERAL: The patient is not in any acute distressed. Awake and alert. HEENT: Nonicteric sclerae, PERRLA, EOMI. Oropharynx clear. Moist mucous membranes. Conjunctivae appear well perfused. HEART: Regular rate and rhythm without murmurs. No lower extremities edema. LUNGS: Clear to auscultation bilaterally. No wheezing, crackles or rhonchi ABDOMEN: Soft, positive bowel sounds, nontender. SKIN: No rash, no excessive bruising, petechiae, or purpura. NEUROLOGIC: AxO x 3. Cranial nerves II-XII intact without motor/sensory deficit. Objective Labs 11/14/25 04:10 11/14/25 04:10 Labs: Laboratory Results - last 24 hr 11/13/25 11/13/25 11/13/25 10:38 10:45 12:40 WBC 9.8 RBC 4.08 L Hgb 12.0 L Hct 36.0 L MCV 88.3 MCH 29.4 MCHC 33.3 RDW 13.4 Plt Count 444 H Neut % (Auto) 74.0 Lymph % (Auto) 13.5 L [place] % (Auto) 9.4 Eos % (Auto) 2.0 Baso % (Auto) 1.1 Neut # (Auto) 7200 H Lymph # (Auto) 1300 [place] # (Auto) 900 Eos # (Auto) 200 Baso # (Auto) 100 Sodium 132 L Potassium 4.3 Chloride 102 Carbon Dioxide 19 L BUN 17 Creatinine 1.01 Estimated GFR > 60 BUN/Creatinine Ratio 16.8 Glucose 137 H POC Whole Bld Glucose Lactate 3.2 H 3.0 H Calcium 9.0 Magnesium Total Bilirubin 0.4 AST 31 ALT 11 Alkaline Phosphatase 86 Total Creatine Kinase 279 H Troponin I 0.019 NT-Pro-B Natriuret Pep 586 H Total Protein 7.0 Albumin 4.3 Globulin 2.7 Albumin/Globulin Ratio 1.6 Procalcitonin 0.048 Urine Color Urine Appearance Urine pH Ur Specific [place] Urine Protein Urine Glucose (UA) Urine Ketones Urine Occult Blood Urine Nitrate Urine Bilirubin Urine Urobilinogen Ur Leukocyte Esterase Urine RBC Urine WBC Ur Squamous Epith Cells Urine Bacteria Ur Culture Indicated? Vol Urine Centrifuged SARS-CoV-2 (PCR) Negative Influenza A (RT-PCR) Flu a negative Influenza B (RT-PCR) Flu b negative RSV (PCR) Negative 11/13/25 11/13/25 11/13/25 13:40 15:25 17:34 WBC RBC Hgb Hct MCV MCH MCHC RDW Plt Count Neut % (Auto) Lymph % (Auto) [place] % (Auto) Eos % (Auto) Baso % (Auto) Neut # (Auto) Lymph # (Auto) [place] # (Auto) Eos # (Auto) Baso # (Auto) Sodium Potassium Chloride Carbon Dioxide BUN Creatinine Estimated GFR BUN/Creatinine Ratio Glucose POC Whole Bld Glucose Lactate 3.4 H 3.8 H Calcium Magnesium Total Bilirubin AST ALT Alkaline Phosphatase Total Creatine Kinase Troponin I NT-Pro-B Natriuret Pep Total Protein Albumin Globulin Albumin/Globulin Ratio Procalcitonin Urine Color Yellow Urine Appearance Clear Urine pH 6.0 Ur Specific [place] 1.020 Urine Protein Negative Urine Glucose (UA) Negative Urine Ketones Trace H Urine Occult Blood Negative Urine Nitrate Negative Urine Bilirubin Negative Urine Urobilinogen 0.2 Ur Leukocyte Esterase Negative Urine RBC None seen Urine WBC None seen Ur Squamous Epith Cells 0-1 /hpf Urine Bacteria None seen Ur Culture Indicated? Cult not indicated Vol Urine Centrifuged 10ml (spun) SARS-CoV-2 (PCR) Influenza A (RT-PCR) Influenza B (RT-PCR) RSV (PCR) 11/13/25 11/13/25 11/13/25 20:28 22:11 22:14 WBC RBC Hgb Hct MCV MCH MCHC RDW Plt Count Neut % (Auto) Lymph % (Auto) [place] % (Auto) Eos % (Auto) Baso % (Auto) Neut # (Auto) Lymph # (Auto) [place] # (Auto) Eos # (Auto) Baso # (Auto) Sodium Potassium Chloride Carbon Dioxide BUN Creatinine Estimated GFR BUN/Creatinine Ratio Glucose POC Whole Bld Glucose 191 H Lactate 3.3 H 5.0 H* Calcium Magnesium Total Bilirubin AST ALT Alkaline Phosphatase Total Creatine Kinase Troponin I NT-Pro-B Natriuret Pep Total Protein Albumin Globulin Albumin/Globulin Ratio Procalcitonin Urine Color Urine Appearance Urine pH Ur Specific [place] Urine Protein Urine Glucose (UA) Urine Ketones Urine Occult Blood Urine Nitrate Urine Bilirubin Urine Urobilinogen Ur Leukocyte Esterase Urine RBC Urine WBC Ur Squamous Epith Cells Urine Bacteria Ur Culture Indicated? Vol Urine Centrifuged SARS-CoV-2 (PCR) Influenza A (RT-PCR) Influenza B (RT-PCR) RSV (PCR) 11/14/25 11/14/25 11/14/25 00:01 00:17 02:08 WBC 9.1 RBC 3.95 L Hgb 11.5 L Hct 34.6 L MCV 87.5 MCH 29.1 MCHC 33.3 RDW 13.2 Plt Count 453 H Neut % (Auto) 92.2 H Lymph % (Auto) 5.8 L [place] % (Auto) 1.7 L Eos % (Auto) 0.0 L Baso % (Auto) 0.3 Neut # (Auto) 8400 H Lymph # (Auto) 500 L [place] # (Auto) 200 Eos # (Auto) 0 Baso # (Auto) 0 Sodium 133 L Potassium 4.3 Chloride 100 Carbon Dioxide 18 L BUN 15 Creatinine 0.87 Estimated GFR > 60 BUN/Creatinine Ratio 17.2 Glucose 177 H POC Whole Bld Glucose 189 H Lactate 4.5 H* 3.2 H Calcium 9.0 Magnesium 1.4 L Total Bilirubin 0.2 AST 38 ALT 34 Alkaline Phosphatase 81 Total Creatine Kinase Troponin I 0.017 NT-Pro-B Natriuret Pep 911 H Total Protein 6.8 Albumin 4.2 Globulin 2.6 Albumin/Globulin Ratio 1.6 Procalcitonin Urine Color Urine Appearance Urine pH Ur Specific [place] Urine Protein Urine Glucose (UA) Urine Ketones Urine Occult Blood Urine Nitrate Urine Bilirubin Urine Urobilinogen Ur Leukocyte Esterase Urine RBC Urine WBC Ur Squamous Epith Cells Urine Bacteria Ur Culture Indicated? Vol Urine Centrifuged SARS-CoV-2 (PCR) Influenza A (RT-PCR) Influenza B (RT-PCR) RSV (PCR) 11/14/25 11/14/25 11/14/25 04:08 04:10 06:57 WBC 8.7 RBC 3.77 L Hgb 11.0 L Hct 32.9 L MCV 87.2 MCH 29.3 MCHC 33.6 RDW 13.2 Plt Count 477 H Neut % (Auto) 87.1 H Lymph % (Auto) 5.8 L [place] % (Auto) 3.7 Eos % (Auto) 0.4 L Baso % (Auto) 3.0 H Neut # (Auto) 7600 H Lymph # (Auto) 500 L [place] # (Auto) 300 Eos # (Auto) 0 Baso # (Auto) 300 H Sodium 130 L Potassium 4.4 Chloride 100 Carbon Dioxide 22 BUN 15 Creatinine 0.81 Estimated GFR > 60 BUN/Creatinine Ratio 18.5 Glucose 189 H POC Whole Bld Glucose Lactate 2.4 H 1.6 Calcium 8.9 Magnesium Total Bilirubin AST ALT Alkaline Phosphatase Total Creatine Kinase Troponin I NT-Pro-B Natriuret Pep Total Protein Albumin Globulin Albumin/Globulin Ratio Procalcitonin Urine Color Urine Appearance Urine pH Ur Specific [place] Urine Protein Urine Glucose (UA) Urine Ketones Urine Occult Blood Urine Nitrate Urine Bilirubin Urine Urobilinogen Ur Leukocyte Esterase Urine RBC Urine WBC Ur Squamous Epith Cells Urine Bacteria Ur Culture Indicated? Vol Urine Centrifuged SARS-CoV-2 (PCR) Influenza A (RT-PCR) Influenza B (RT-PCR) RSV (PCR) Assessment & Plan Assessment & Plan narrative: COPD exacerbation. Admit to medical telemetry inpatient. Conitnue Solumedrol and duonebs. Possible pneumonia/Sepsis. Note Recently completed outpatient Augmentin/Doxycycline. However due to ongoing symptoms and elevated lactic acid will continue Zosyn and follow up cultures. Elevated lactic acid. Unclear but will trend with IVF. Note patient afebrile and normal WBC. IDDM. Monitor glucose with SQ inslulin. Afib. Monitor on tele and resume home metoprol DVT PPx SCDs hep SQ Code status full code Disposition home in 2-3 days - As the provider of this telehealth evaluation, requested by the patient's evaluating physician, I attest that I introduced myself to the patient, provided my credentials and determined that telemedicine via a real-time, 2 way interactive audio and video platform is an appropriate and effective means of providing this service. - I reviewed the patient's chart and had a discussion with the member of the patient's treatment team. - The patient and I mutually agreed with continuation of this evaluation via telemedicine. The patient consented for the telemedicine evaluation. - This virtual encounter was taken place from [place] by Dr. Ernie Traylor. The patient was evaluated at [facility]. The encounter was approximately 35 minutes. The nurse was present during the entire time of the encounter and was able assists with the stethoscope to listen to the patients. Time-Based Coding :: [TOTAL MINUTES] spent with patient and on the chart (including review of chart, obtaining history, exam, reviewing outside data, placing orders, documenting exam and treatment plan, and counseling patient) on [DATE]. Quality VTE Deep Vein Thrombosis/Pulmonary Embolism Present on Admission: No
[2025-11-14 08:39] LABS: Lactate (Lactic Acid) 1.9 mmol/L (0.7-2.1)
[2025-11-14] MEDS: ENOXAPARIN 40 MG/0.4 ML SYRINGE SUBCUT (08:46)
[2025-11-14] MEDS: ASPIRIN EC 81 MG TABLET PO (08:46)
[2025-11-14] MEDS: ALBUTEROL/IPRATROPIUM 3 ML AMPUL INH ×3 (09:12→19:52)
--- NOTE | 2025-11-14 09:41 | PM.HP.1 ---
History of Present Illness History of Present Illness Chief complaint: Pneumonia/Weak,tired Narrative: From night doctor: 79 year old male with past medical history of HTN, HLD, IDDM, afib and COPD non O2 dependent presents with cough and shortness of breath. Per the patients' report, the patient was diagnosed with PNA at [facility] and was started on Augmentin/Doxycycline in which the patient completed today. Howeer, the patient states he continue to have shortness of breath and coughig. The patient states he has generalized weakness, fatigue and decreased appetite. Otherwise the patient denies any fever, chills, nausea, vomiting or diarrhea. In our ER the patient was hemodynamically stable. However, the patient was still reported to be staruting well on room air. The patient CXR shows no pneumonia but lacti acid was 3.2. IVF was given and Zosyn, solumedrol and duonebs. S: Feeling a little bit better with breathing treatments. It was still short of breath. It was on oxygen. He has been having a productive cough with green phlegm. No fevers, or chills. O: NAD, alert and oriented, fluent speech, calm. Normocephalic skull, EOMI, anicteric sclera, symmetric pupils. Oropharynx unremarkable, no droop. Neck supple, midline trachea, no adenopathy. Lungs with diminished breath sounds and some prolongation of expiratory phase, normal rate and effort. Heart regular, no murmur gallop or rub. Abdomen is soft, non distended and non tender. Extremities are free of edema. Skin is free of rash or lesions. Joints are not swollen or deformed. Judgment appears to be normal. IMAGING: A/P: 1. COPD exacerbation. Active. 2. Possible pneumonia/Sepsis. Note Recently completed outpatient Augmentin/Doxycycline. 3. Elevated lactic acid. Improving. 4. IDDM. Monitor glucose with SQ inslulin. 5. AFib. Monitor on tele and resume home metoprolol. PLAN: -continue antibiotics, steroids, and bronchodilators. -monitor microbiology. -wean oxygen as able. -IV fluids and trend lactic acid. -correctional lispro for hyperglycemia. DVT PPx SCDs hep SQ Code status full code Anticipate 2 MN in the hospital, supports inpatient status. [facility] Medical History (Updated 11/13/25 @ 19:03 by Aretha Gongora DO) History of ulcer disease Seasonal allergies Hypertension GERD (gastroesophageal reflux disease) Hypothyroid Sleep apnea with use of continuous positive airway pressure (CPAP) Diabetes Surgical History H/O knee surgery History of total knee arthroplasty History of tonsillectomy History of appendectomy History of colonoscopy Social History household members: spouse Smoking Status: Former smoker alcohol intake: never Meds Home Medications and Allergies Home Medications ?Medication ?Instructions ?Recorded ?Confirmed ?Type albuterol sulfate 90 mcg/actuation 2 puff inhalation Q2H PRN copd 04/07/19 11/13/25 History aerosol inhaler aspirin 81 mg tablet,delayed 81 mg PO DAILY 04/07/19 11/13/25 History release diclofenac sodium 1 % topical gel 2 g topical BID 04/07/19 11/13/25 History fluticasone propionate 50 1 spray intranasal BID PRN 04/07/19 11/13/25 History mcg/actuation nasal congestion spray,suspension insulin glargine 100 unit/mL 24 unit SUBCUT BEDTIME 04/07/19 11/13/25 History subcutaneous solution (Lantus U-100 Insulin) levothyroxine 125 mcg tablet 125 mcg PO DAILY 04/07/19 11/13/25 History losartan 100 mg tablet 100 mg PO BEDTIME 04/07/19 11/13/25 History metformin 1,000 mg tablet 2,000 mg PO DAILY 04/07/19 11/13/25 History omeprazole 20 mg capsule,delayed 20 mg PO DAILY 04/07/19 11/13/25 History release triamcinolone acetonide 0.1 % 1 applic topical DAILY PRN dry skin 04/07/19 11/13/25 History topical ointment carbidopa 25 mg-levodopa 100 mg 1.5 tab PO TID 11/13/25 11/13/25 History tablet codeine 10 mg-guaifenesin 100 mg/5 5 ml PO Q6H PRN cough #100 mL 11/13/25 Rx mL oral liquid (Guaifenesin AC) ezetimibe 10 mg tablet 10 mg PO DAILY 11/13/25 11/13/25 History fexofenadine 1 tab PO DAILY 11/13/25 11/13/25 History furosemide 20 mg tablet (Lasix) 20 mg PO DAILY 11/13/25 11/13/25 History prednisone 10 mg tablet 10 mg PO DAILY #30 tabs 11/13/25 11/13/25 Rx tamsulosin 0.4 mg capsule (Flomax) 0.8 mg PO BEDTIME 11/13/25 11/13/25 History Allergies Allergy/AdvReac Type Severity Reaction Status Date / Time Pspnsvj-PLV-ZhZ Reductase AdvReac Intermediate Muscle Pain Verified 11/13/25 10:28 Inhibitor (Vhyruct-Oom-Tmd Reductase Inhibitor) Exam Vital Signs (past 8 hours): - 11/14/25 04:30 11/14/25 09:12 Temperature 98.8 F Pulse Rate 71 67 Respiratory Rate 20 20 Blood Pressure 181/88 H Pulse Oximetry 94 99 Oxygen Delivery Method Room Air Oxygen Flow Rate 2.5 Fraction of Inspired Oxygen 21 SaO2/FiO2 Ratio 461 Oxygen Delivery Method Room Air Oxygen Flow Rate 2.5 Objective Labs 11/14/25 04:10 11/14/25 04:10 Labs: Laboratory Results - last 24 hr 11/13/25 11/13/25 11/13/25 10:38 10:45 12:40 WBC 9.8 RBC 4.08 L Hgb 12.0 L Hct 36.0 L MCV 88.3 MCH 29.4 MCHC 33.3 RDW 13.4 Plt Count 444 H Neut % (Auto) 74.0 Lymph % (Auto) 13.5 L [place] % (Auto) 9.4 Eos % (Auto) 2.0 Baso % (Auto) 1.1 Neut # (Auto) 7200 H Lymph # (Auto) 1300 [place] # (Auto) 900 Eos # (Auto) 200 Baso # (Auto) 100 Sodium 132 L Potassium 4.3 Chloride 102 Carbon Dioxide 19 L BUN 17 Creatinine 1.01 Estimated GFR > 60 BUN/Creatinine Ratio 16.8 Glucose 137 H POC Whole Bld Glucose Lactate 3.2 H 3.0 H Calcium 9.0 Magnesium Total Bilirubin 0.4 AST 31 ALT 11 Alkaline Phosphatase 86 Total Creatine Kinase 279 H Troponin I 0.019 NT-Pro-B Natriuret Pep 586 H Total Protein 7.0 Albumin 4.3 Globulin 2.7 Albumin/Globulin Ratio 1.6 Procalcitonin 0.048 Urine Color Urine Appearance Urine pH Ur Specific [place] Urine Protein Urine Glucose (UA) Urine Ketones Urine Occult Blood Urine Nitrate Urine Bilirubin Urine Urobilinogen Ur Leukocyte Esterase Urine RBC Urine WBC Ur Squamous Epith Cells Urine Bacteria Ur Culture Indicated? Vol Urine Centrifuged SARS-CoV-2 (PCR) Negative Influenza A (RT-PCR) Flu a negative Influenza B (RT-PCR) Flu b negative RSV (PCR) Negative 11/13/25 11/13/25 11/13/25 13:40 15:25 17:34 WBC RBC Hgb Hct MCV MCH MCHC RDW Plt Count Neut % (Auto) Lymph % (Auto) [place] % (Auto) Eos % (Auto) Baso % (Auto) Neut # (Auto) Lymph # (Auto) [place] # (Auto) Eos # (Auto) Baso # (Auto) Sodium Potassium Chloride Carbon Dioxide BUN Creatinine Estimated GFR BUN/Creatinine Ratio Glucose POC Whole Bld Glucose Lactate 3.4 H 3.8 H Calcium Magnesium Total Bilirubin AST ALT Alkaline Phosphatase Total Creatine Kinase Troponin I NT-Pro-B Natriuret Pep Total Protein Albumin Globulin Albumin/Globulin Ratio Procalcitonin Urine Color Yellow Urine Appearance Clear Urine pH 6.0 Ur Specific [place] 1.020 Urine Protein Negative Urine Glucose (UA) Negative Urine Ketones Trace H Urine Occult Blood Negative Urine Nitrate Negative Urine Bilirubin Negative Urine Urobilinogen 0.2 Ur Leukocyte Esterase Negative Urine RBC None seen Urine WBC None seen Ur Squamous Epith Cells 0-1 /hpf Urine Bacteria None seen Ur Culture Indicated? Cult not indicated Vol Urine Centrifuged 10ml (spun) SARS-CoV-2 (PCR) Influenza A (RT-PCR) Influenza B (RT-PCR) RSV (PCR) 11/13/25 11/13/25 11/13/25 20:28 22:11 22:14 WBC RBC Hgb Hct MCV MCH MCHC RDW Plt Count Neut % (Auto) Lymph % (Auto) [place] % (Auto) Eos % (Auto) Baso % (Auto) Neut # (Auto) Lymph # (Auto) [place] # (Auto) Eos # (Auto) Baso # (Auto) Sodium Potassium Chloride Carbon Dioxide BUN Creatinine Estimated GFR BUN/Creatinine Ratio Glucose POC Whole Bld Glucose 191 H Lactate 3.3 H 5.0 H* Calcium Magnesium Total Bilirubin AST ALT Alkaline Phosphatase Total Creatine Kinase Troponin I NT-Pro-B Natriuret Pep Total Protein Albumin Globulin Albumin/Globulin Ratio Procalcitonin Urine Color Urine Appearance Urine pH Ur Specific [place] Urine Protein Urine Glucose (UA) Urine Ketones Urine Occult Blood Urine Nitrate Urine Bilirubin Urine Urobilinogen Ur Leukocyte Esterase Urine RBC Urine WBC Ur Squamous Epith Cells Urine Bacteria Ur Culture Indicated? Vol Urine Centrifuged SARS-CoV-2 (PCR) Influenza A (RT-PCR) Influenza B (RT-PCR) RSV (PCR) 11/14/25 11/14/25 11/14/25 00:01 00:17 02:08 WBC 9.1 RBC 3.95 L Hgb 11.5 L Hct 34.6 L MCV 87.5 MCH 29.1 MCHC 33.3 RDW 13.2 Plt Count 453 H Neut % (Auto) 92.2 H Lymph % (Auto) 5.8 L [place] % (Auto) 1.7 L Eos % (Auto) 0.0 L Baso % (Auto) 0.3 Neut # (Auto) 8400 H Lymph # (Auto) 500 L [place] # (Auto) 200 Eos # (Auto) 0 Baso # (Auto) 0 Sodium 133 L Potassium 4.3 Chloride 100 Carbon Dioxide 18 L BUN 15 Creatinine 0.87 Estimated GFR > 60 BUN/Creatinine Ratio 17.2 Glucose 177 H POC Whole Bld Glucose 189 H Lactate 4.5 H* 3.2 H Calcium 9.0 Magnesium 1.4 L Total Bilirubin 0.2 AST 38 ALT 34 Alkaline Phosphatase 81 Total Creatine Kinase Troponin I 0.017 NT-Pro-B Natriuret Pep 911 H Total Protein 6.8 Albumin 4.2 Globulin 2.6 Albumin/Globulin Ratio 1.6 Procalcitonin Urine Color Urine Appearance Urine pH Ur Specific [place] Urine Protein Urine Glucose (UA) Urine Ketones Urine Occult Blood Urine Nitrate Urine Bilirubin Urine Urobilinogen Ur Leukocyte Esterase Urine RBC Urine WBC Ur Squamous Epith Cells Urine Bacteria Ur Culture Indicated? Vol Urine Centrifuged SARS-CoV-2 (PCR) Influenza A (RT-PCR) Influenza B (RT-PCR) RSV (PCR) 11/14/25 11/14/25 11/14/25 04:08 04:10 06:57 WBC 8.7 RBC 3.77 L Hgb 11.0 L Hct 32.9 L MCV 87.2 MCH 29.3 MCHC 33.6 RDW 13.2 Plt Count 477 H Neut % (Auto) 87.1 H Lymph % (Auto) 5.8 L [place] % (Auto) 3.7 Eos % (Auto) 0.4 L Baso % (Auto) 3.0 H Neut # (Auto) 7600 H Lymph # (Auto) 500 L [place] # (Auto) 300 Eos # (Auto) 0 Baso # (Auto) 300 H Sodium 130 L Potassium 4.4 Chloride 100 Carbon Dioxide 22 BUN 15 Creatinine 0.81 Estimated GFR > 60 BUN/Creatinine Ratio 18.5 Glucose 189 H POC Whole Bld Glucose Lactate 2.4 H 1.6 Calcium 8.9 Magnesium Total Bilirubin AST ALT Alkaline Phosphatase Total Creatine Kinase Troponin I NT-Pro-B Natriuret Pep Total Protein Albumin Globulin Albumin/Globulin Ratio Procalcitonin Urine Color Urine Appearance Urine pH Ur Specific [place] Urine Protein Urine Glucose (UA) Urine Ketones Urine Occult Blood Urine Nitrate Urine Bilirubin Urine Urobilinogen Ur Leukocyte Esterase Urine RBC Urine WBC Ur Squamous Epith Cells Urine Bacteria Ur Culture Indicated? Vol Urine Centrifuged SARS-CoV-2 (PCR) Influenza A (RT-PCR) Influenza B (RT-PCR) RSV (PCR) 11/14/25 11/14/25 07:56 08:22 WBC RBC Hgb Hct MCV MCH MCHC RDW Plt Count Neut % (Auto) Lymph % (Auto) [place] % (Auto) Eos % (Auto) Baso % (Auto) Neut # (Auto) Lymph # (Auto) [place] # (Auto) Eos # (Auto) Baso # (Auto) Sodium Potassium Chloride Carbon Dioxide BUN Creatinine Estimated GFR BUN/Creatinine Ratio Glucose POC Whole Bld Glucose 191 H Lactate 1.9 Calcium Magnesium Total Bilirubin AST ALT Alkaline Phosphatase Total Creatine Kinase Troponin I NT-Pro-B Natriuret Pep Total Protein Albumin Globulin Albumin/Globulin Ratio Procalcitonin Urine Color Urine Appearance Urine pH Ur Specific [place] Urine Protein Urine Glucose (UA) Urine Ketones Urine Occult Blood Urine Nitrate Urine Bilirubin Urine Urobilinogen Ur Leukocyte Esterase Urine RBC Urine WBC Ur Squamous Epith Cells Urine Bacteria Ur Culture Indicated? Vol Urine Centrifuged SARS-CoV-2 (PCR) Influenza A (RT-PCR) Influenza B (RT-PCR) RSV (PCR) Assessment & Plan Time-Based Coding :: 35 min spent with patient and on the chart (including review of chart, obtaining history, exam, reviewing outside data, placing orders, documenting exam and treatment plan, and counseling patient) on 11/14. Quality VTE Deep Vein Thrombosis/Pulmonary Embolism Present on Admission: No MIPS - Admit I confirm the patient?s Advance Care Plan is present, Code status is documented, Surrogate decision maker is in patient?s record [If Yes, STOP here]: Yes MIPS - Meds 'Current medications' to include all prescriptions, [id number] products, herbals, cannabis/cannabidiol products, and vitamin/mineral/dietary (nutritional) supplements. I have utilized all available resources to obtain, update, or review the patient?s current medications. [If Yes, STOP here]: Yes
[2025-11-14] MEDS: SODIUM CHLORIDE 0.9% 1,000 ML 100 ML IV (10:53)
[2025-11-14 11:01] LABS: Lactate (Lactic Acid) 1.7 mmol/L (0.7-2.1)
[2025-11-14] MEDS: LOSARTAN 50 MG TABLET 100 MG PO ×2 (11:02→21:41)
[2025-11-14] MEDS: EZETIMIBE 10 MG TABLET PO (11:02)
[2025-11-14 11:19] LABS: Hemoglobin A1C% w Est Avg Glu 7.0 % (4.0-6.0)
[2025-11-14] MEDS: PANTOPRAZOLE DR 20 MG TABLET PO (11:34)
--- NOTE | 2025-11-14 14:37 | CM.DANOTE ---
Patient is a 79 yo male who was admitted INPT Status on 11/13/25 for COPD Exac/PNA. Pt has [facility] and [employer] ([employer]) for insurance and his PCP is Josh Crockett at [facility]. EMR was reviewed. Per MD, pt with hx of COPD and no home oxygen at baseline and failed outpt abx for PNA and admitted for COPD exac and possible PNA and was on 2.5LO2 and getting IV Abx. SW met bedside with pt and spouse and explained role and they confirm that they live at home in [place] and both are active and independent at baseline. Pt has Parkinsons and states he typically has unsteady gait and uses his cane mostly but does have a few FWW and 4WW at home if needed. Pt states he was recently admitted at [facility] and discharged home with [facility] and recently discharged from PT services and has continued doing his home exercises. Spouse and pt confirm pt has been up ambulating in the room and seems to be close with mobility and currently they do not feel PT eval needed or HH at d/c. Preference is to d/c home when stable and spouse confirms she will transport and they do not anticipate any needs. Spouse just does not want to drive at night and would need to leave before 1500 on day of discharge. Plan: SW to follow closely for plan of discharge home when stable via spouse POV and any further identified discharge planning needs. Currently decline any need for HH. GAUTAM Bright Discharge Planning/Care Management Advanced directive, confirm from FAMILY Start: 11/13/25 22:08 Freq: Q24H Status: Active Protocol: Document 11/13/25 22:08 TD (Rec: 11/14/25 03:36 TD [id number]) Advance Directive, confirm on record Time 22:00 Person contacted No one Copy received No CM Discharge Assessment Start: 11/13/25 20:53 Freq: Status: Active Protocol: Document 11/14/25 14:33 BF (Rec: 11/14/25 14:37 BF [id number]) Discharge Planning Assessment Assigned Discharge GAUTAM Hoffmann [employer] Decorator Provider Josh Crockett Insurance Medicare,[facility] DPOA/Assigned Spouse Laverne Stringeree Name Contact Information [phone] Advance Directives? Yes Advance Directives No on File History Provided By Patient,Significant Other,Medical Record Has Patient been No admitted in last 30 days? Prior Living House Arrangements Household Members spouse Type of Relies on Others transporation used prior to admit Independent with ADL Yes 's Is patient alert and Yes oriented? Needs Assistance Home Chores / Shopping With Caregiver for No Another Comment Just discharged from [facility] services DME Already Rented / FWW / Walker,Cane Owned Comment Mostly uses cane but has a couple FWW at home Barriers to No Discharge Discharge Plan Home Transportation Spouse confirms she will transport but will need to Arrangement leave before dark Referrals Initiated None needed Whiteboard Updated Yes in Patient Room with name and ext. # of Gastroenterology Technician Review Status In Process Please Provide Date 11/14/25 Initial DC Assessment Was Performed Next Review Type Continued Stay Review
--- NOTE | 2025-11-14 16:36 | PC.NURSE ---
Elevated BP reported by PRODUCTION CONTROL SCHEDULER. Recheck BP 190/102. Patient denies pain or other complaint at this time, sitting up in chair. Dr. Rhodes notified.
[2025-11-14] MEDS: INSULIN LISPRO 100 UNIT/ML 3ML VIAL SUBCUT ×2 (17:06→21:43)
[2025-11-14] MEDS: TAMSULOSIN 0.4 MG CAPSULE 0.8 MG PO (21:41)
[2025-11-14] MEDS: INSULIN GLARGINE 100 UNIT/ML 3ML PEN 24 UNIT SUBCUT (21:46)
[2025-11-15] VITALS: BP 189/94; PULSE 64; RESP 20; TEMP 36.6; O2SAT 94
[2025-11-15] MEDS: SODIUM CHLORIDE 0.9% 1,000 ML 100 ML IV (00:48)
[2025-11-15] MEDS: methylPREDNISolone succ 125 MG/2 ML VIAL 60 MG IV (02:26)
[2025-11-15] MEDS: PIPERACILLIN/TAZO 3.375 GM in SODIUM CHLORIDE 0.9% 100 ML IV (02:26)
[2025-11-15 04:00] VITALS: BP 202/101; PULSE 62; RESP 20; TEMP 36.5; O2SAT 96
[2025-11-15 04:44] VITALS: BP 202/101; PULSE 63
[2025-11-15] MEDS: hydrALAZINE 20 MG/ML VIAL 10 MG IV (04:44)
[2025-11-15 05:53] VITALS: BP 157/77; PULSE 73
[2025-11-15] MEDS: LEVOTHYROXINE 125 MCG TABLET PO (06:06)
[2025-11-15] MEDS: PANTOPRAZOLE DR 20 MG TABLET PO (06:06)
--- NOTE | 2025-11-15 07:58 | PM.PN.1 ---
Subjective Subjective Interval history: Summary: 79 year old male with past medical history of HTN, HLD, IDDM, afib and COPD non O2 dependent presents with cough and shortness of breath. Per the patients' report, the patient was diagnosed with PNA at [facility] and was started on Augmentin/Doxycycline in which the patient completed today. Howeer, the patient states he continue to have shortness of breath and coughig. The patient states he has generalized weakness, fatigue and decreased appetite. Otherwise the patient denies any fever, chills, nausea, vomiting or diarrhea. In our ER the patient was hemodynamically stable. However, the patient was still reported to be staruting well on room air. The patient CXR shows no pneumonia but lacti acid was 3.2. IVF was given and Zosyn, solumedrol and duonebs. S: O: NAD, alert and oriented. Fluent speech. Lungs are clear, normal rate and effort. Heart is regular, no murmur gallop or rub. Abdomen is soft, non distended. Extremities are free of edema. IMAGING: CXR: No acute abnormality. Suspect large hiatal hernia. A/P: 1. COPD exacerbation. Active. 2. Possible pneumonia/Sepsis. Note Recently completed outpatient Augmentin/Doxycycline. 3. Elevated lactic acid. Improving. 4. IDDM. Monitor glucose with SQ inslulin. 5. AFib. Monitor on tele and resume home metoprolol. PLAN: -continue antibiotics, steroids, and bronchodilators. -monitor microbiology. -wean oxygen as able. -IV fluids and trend lactic acid. -correctional lispro for hyperglycemia. DVT PPx SCDs hep SQ Code status full code Anticipate 2 MN in the hospital, supports inpatient status. Exam Vital Signs (past 8 hours): - 11/15/25 00:00 11/15/25 04:00 11/15/25 04:44 Temperature 97.9 F 97.7 F Pulse Rate 64 62 63 Respiratory Rate 20 20 Blood Pressure 189/94 H 202/101 H 202/101 H Pulse Oximetry 94 96 Oxygen Flow Rate 0 0 11/15/25 05:53 Temperature Pulse Rate 73 Respiratory Rate Blood Pressure 157/77 H Pulse Oximetry Oxygen Flow Rate Fraction of Inspired Oxygen 21 SaO2/FiO2 Ratio 466 Oxygen Delivery Method Room Air Oxygen Flow Rate 0 Objective Labs 11/14/25 04:10 11/14/25 04:10 Labs: Laboratory Results - last 24 hr 11/14/25 11/14/25 11/14/25 08:22 10:33 12:10 POC Whole Bld Glucose 149 H Hemoglobin A1c 7.0 H Lactate 1.9 1.7 11/14/25 11/14/25 17:03 21:32 POC Whole Bld Glucose 212 H 202 H Hemoglobin A1c Lactate PFSH Medical History (Updated 11/13/25 @ 19:03 by Aretha Gongora DO) History of ulcer disease Seasonal allergies Hypertension GERD (gastroesophageal reflux disease) Hypothyroid Sleep apnea with use of continuous positive airway pressure (CPAP) Diabetes Surgical History H/O knee surgery History of total knee arthroplasty History of tonsillectomy History of appendectomy History of colonoscopy Social History household members: spouse Smoking Status: Former smoker alcohol intake: never Assessment & Plan Time-Based Coding :: [TOTAL MINUTES] spent with patient and on the chart (including review of chart, obtaining history, exam, reviewing outside data, placing orders, documenting exam and treatment plan, and counseling patient) on [DATE]. Quality VTE Deep Vein Thrombosis/Pulmonary Embolism Present on Admission: No
[2025-11-15 08:00] VITALS: BP 152/75; PULSE 74; RESP 20; TEMP 36.3; O2SAT 94
[2025-11-15] MEDS: INSULIN LISPRO 100 UNIT/ML 3ML VIAL SUBCUT (08:01)
[2025-11-15] MEDS: EZETIMIBE 10 MG TABLET PO (08:58)
[2025-11-15] MEDS: ASPIRIN EC 81 MG TABLET PO (08:58)
[2025-11-15] MEDS: FENOFIBRATE, MICRONIZED 67 MG CAPSULE 134 MG PO (08:58)
[2025-11-15] MEDS: CARBIDOPA-LEVODOPA 25/100 TABLET 1.5 EACH PO (08:58)
[2025-11-15] MEDS: ENOXAPARIN 40 MG/0.4 ML SYRINGE SUBCUT (08:58)
[2025-11-15] MEDS: ALBUTEROL/IPRATROPIUM 3 ML AMPUL INH (09:00)
[2025-11-15 09:25] VITALS: PULSE 75; RESP 16; O2SAT 100
--- NOTE | 2025-11-15 10:34 | PM.DS.1 ---
History of Present Illness History of Present Illness Chief complaint: Pneumonia/Weak,tired Narrative: From night doctor: 79 year old male with past medical history of HTN, HLD, IDDM, afib and COPD non O2 dependent presents with cough and shortness of breath. Per the patients' report, the patient was diagnosed with PNA at [facility] and was started on Augmentin/Doxycycline in which the patient completed today. Howeer, the patient states he continue to have shortness of breath and coughig. The patient states he has generalized weakness, fatigue and decreased appetite. Otherwise the patient denies any fever, chills, nausea, vomiting or diarrhea. In our ER the patient was hemodynamically stable. However, the patient was still reported to be staruting well on room air. The patient CXR shows no pneumonia but lacti acid was 3.2. IVF was given and Zosyn, solumedrol and duonebs. S: Feeling a little bit better with breathing treatments. It was still short of breath. It was on oxygen. He has been having a productive cough with green phlegm. No fevers, or chills. DISCHARGE EXAM: NAD, alert and oriented, fluent speech, calm. Lungs with diminished breath sounds and some prolongation of expiratory phase, normal rate and effort. Heart regular, no murmur gallop or rub. Abdomen is soft, non distended and non tender. Extremities are free of edema. Skin is free of rash or lesions. IMAGING: CXR: No acute abnormality. Suspect large hiatal hernia. HOSPITAL COURSE: He was admitted treated with IV steroids as well as IV antibiotics for possible COPD exacerbation and pneumonia. He did improve substantially overnight. He had no other problems other than some poor blood pressure readings. He did note that he recently had metoprolol and chlorthalidone stopped because of bradycardia. He also had relatively low blood pressure. We did start him on amlodipine here and we will continue this. He will have close outpatient follow up. He did have an unexpectedly rapid recovery allowing for discharge after 1 midnight. A/P: 1. COPD exacerbation. Improved. 2. Possible pneumonia/Sepsis. . Improved. 3. Elevated lactic acid. Improving. 4. IDDM. Monitor glucose with SQ inslulin. Stable. 5. AFib. Stable. PLAN: -discharge on steroids for several more days as well as oral levofloxacin for 5 days. Close follow up with PCP. -added amlodipine 5 daily for blood pressure control. Code status full code [N], the patient has documentation of a left ventricle ejection fracture less than or equal to 40%, or moderately or severely reduced left ventricle systolic function. [N], the patient has a history of heart transplant or left ventricular assist device (LVAD). [N], the patient was prescribed an EBONY inhibitor at discharge or is already being taken. The patient was not prescribed an EBONY-inhibitor because of the following exception: NA. [N], the patient was prescribed Metoprolol succinate, bisoprolol, or carvedilol at discharge. The patient was not prescribed Metoprolol succinate, bisoprolol, or carvedilol at discharge because of the following exception: NA. Discharge Providers Provider Date of admission: 11/13/25 18:57 Discharge Date: 11/15/25 Primary care physician: Josh Crockett MD Consults: 11/13/25 19:00 Consult to Cardio/Pulmonary Rehabilitation Routine Comment: Physician Instructions: Evaluate and treat Discharge provider: Clarence Rhodes MD Summary Status at Discharge Cognitive/behavioral status at discharge: oriented Functional status at discharge: independent ambulation Overall status at discharge: patient is back to baseline Time Spent with Patient Time spent: Greater than 30 minutes Exam Vital Signs (past 8 hours): - 11/15/25 04:00 11/15/25 04:44 11/15/25 05:53 Temperature 97.7 F Pulse Rate 62 63 73 Respiratory Rate 20 Blood Pressure 202/101 H 202/101 H 157/77 H Pulse Oximetry 96 Oxygen Delivery Method Oxygen Flow Rate 0 11/15/25 08:00 11/15/25 09:25 Temperature 97.4 F L Pulse Rate 74 75 Respiratory Rate 20 16 Blood Pressure 152/75 H Pulse Oximetry 94 100 Oxygen Delivery Method Room Air Oxygen Flow Rate Fraction of Inspired Oxygen 21 SaO2/FiO2 Ratio 466 Oxygen Delivery Method Room Air Oxygen Flow Rate 0 Objective Labs 11/14/25 04:10 11/14/25 04:10 Labs: Laboratory Results - last 24 hr 11/14/25 11/14/25 11/14/25 08:22 10:33 12:10 POC Whole Bld Glucose 149 H Hemoglobin A1c 7.0 H Lactate 1.7 11/14/25 11/14/25 11/15/25 17:03 21:32 07:57 POC Whole Bld Glucose 212 H 202 H 203 H Hemoglobin A1c Lactate PFSH Medical History History of ulcer disease Seasonal allergies Hypertension GERD (gastroesophageal reflux disease) Hypothyroid Sleep apnea with use of continuous positive airway pressure (CPAP) Diabetes Surgical History H/O knee surgery History of total knee arthroplasty History of tonsillectomy History of appendectomy History of colonoscopy Social History household members: spouse Smoking Status: Former smoker alcohol intake: never Discharge Plan Discharge Plan Patient Disposition: Home Provider Discharge Comment: Stable for discharge. Discharge orders & Medications Prescriptions: New codeine-guaifenesin [Guaifenesin AC] 10-100 mg/5 mL liquid 5 ml PO Q6H PRN (Reason: cough) Qty: 100 0RF prednisone 50 mg tablet 50 mg PO DAILY Qty: 5 0RF levofloxacin 750 mg tablet 750 mg PO DAILY 7 Days Qty: 5 0RF Cepacol Sore Throat (nancy-men) 15-2.6 mg lozenge 1 nicolas mucous membrane Q2-4H PRN (Reason: cough) Qty: 64 0RF amlodipine 5 mg tablet 5 mg PO DAILY Qty: 30 1RF Continued insulin glargine [Lantus U-100 Insulin] 100 unit/mL Solution 24 unit SUBCUT BEDTIME aspirin 81 mg Tablet,Delayed Release (Dr/Ec) 81 mg PO DAILY metformin 1,000 mg Tablet 2,000 mg PO DAILY levothyroxine 125 mcg Tablet 125 mcg PO DAILY triamcinolone acetonide 0.1 % Ointment 1 applic TOPICAL DAILY PRN (Reason: dry skin) Patient Comments: uses on feet, legs, hands, and back omeprazole 20 mg Capsule,Delayed Release(Dr/Ec) 20 mg PO DAILY albuterol sulfate 90 mcg/actuation Hfa Aerosol Inhaler 2 puff INHALATION Q2H PRN (Reason: copd) losartan 100 mg Tablet 100 mg PO BEDTIME fluticasone propionate 50 mcg/actuation [place],Suspension 1 spray INTRANASAL BID PRN (Reason: congestion) diclofenac sodium 1 % Gel 2 g TOPICAL BID Patient Comments: uses on joints to treat arthritis carbidopa-levodopa 25-100 mg tablet 1.5 tab PO TID ezetimibe 10 mg tablet 10 mg PO DAILY furosemide [Lasix] 20 mg tablet 20 mg PO DAILY fexofenadine 145 mg tablet 1 tab PO DAILY tamsulosin [Flomax] 0.4 mg capsule 0.8 mg PO BEDTIME Medication counseling provided by Pharmacist: No Follow up/Referrals: Josh Crockett MD [Primary Care Provider, Internal Medicine] Diet/Activity/Treatments Activity: As tolerated. Skin/Wound/Dressing Care Report to your healthcare provider any signs of infection, such as:: chills, fever and night sweats Visit Report/Discharge Packet Instructions: Chronic Obstructive Pulmonary Disease Stand Alone Forms: [employer], Stroke Signs & Symptoms, Influenza Vaccine Info, Notice of Privacy Practices, Inpatient vs Outpatient, Pt. Rights & Responsibilities Discharge Data Primary Care Provider: Josh Crockett Quality VTE Deep Vein Thrombosis/Pulmonary Embolism Present on Admission: No
--- NOTE | 2025-11-15 11:25 | CM.DPNOTE ---
DCP Continued: Reviewed EMR and team rounds for pt?s medical status. Per Provider, pt cleared for discharge today with spouse. No new discharge needs identified at this time. Plan: Anticipating dc home with spouse to transport, follow up outpatient with PCP. CM Team will continue to follow for coordination of discharge plans. LYNNETTE Cunningham
--- NOTE | 2025-11-15 11:27 | PC.NURSE ---
D/c packet reviewed with pt and spouse at bedside. Discussed new prescriptions. Pt requested Rx for cepacol lozenges as well to help with his cough. Notified Dr. Rhodes. IV and tele removed. Pt dressed with assistance of spouse. Pt exited via w/c with FEEDER OPERATOR to private vehicle.
== END 2025-11-15 11:37 | disposition home or self-care (01) | DRG 871 ==
LOC: ED 15:07 → AC 18:58
PROVIDERS: Hospitalist; Internal Medicine; Admitting Provider Family Medicine; Emergency Provider Emergency Medicine; Family Provider Internal Medicine; PCP Internal Medicine; Referring Provider Emergency Medicine; Visit Provider Family Medicine
DX: A41.9 Sepsis, unspecified organism (principal); J18.9 Pneumonia, unspecified organism; J44.1 Chronic obstructive pulmonary disease with (acute) exacerbation; E11.9 Type 2 diabetes mellitus without complications; I48.91 Unspecified atrial fibrillation; R79.89 Other specified abnormal findings of blood chemistry; E03.9 Hypothyroidism, unspecified; I10 Essential (primary) hypertension; K21.9 Gastro-esophageal reflux disease without esophagitis; Z79.84 Long term (current) use of oral hypoglycemic drugs; Z79.4 Long term (current) use of insulin; Z87.891 Personal history of nicotine dependence; Z79.890 Hormone replacement therapy
CPT/HCPCS: 36415; 71045; 80048; 80053; 81001; 82550; 82962; 83036; 83605; 83735; 83880; 84145; 84484; 85025; 87040; 87637; 93005; 94640; 96365; 96367; 96375; 99284; 99285; J0360; J0696; J1650; J1815; J2270; J2543; J2919; J3475; J7030; J7050; J7060